=== PATIENT | male | born 1965 | race Caucasian/White ===

== ENCOUNTER 2018-06-19 16:24 | Emergency (ER) | payer SELFPAY ==
[~2018-06-19] VITALS: Ht 180.3 cm; Wt 90.7 kg
== END 2018-06-19 17:30 | disposition home or self-care (01) ==
LOC: ED 16:24
DX: S01.81XA Laceration without foreign body of other part of head, initial encounter (principal); W22.8XXA Striking against or struck by other objects, initial encounter; Y93.89 Activity, other specified; Y92.89 Other specified places as the place of occurrence of the external cause; Y99.8 Other external cause status